=== PATIENT | female | born 1955 | race Caucasian/White ===

== ENCOUNTER 2020-11-03 17:23 | Emergency (ER) | payer BC, SELFPAY ==
[2020-11-03 18:22] VITALS: BP 171/82; PULSE 84; RESP 18; TEMP 37.8; O2SAT 98; BMI 20.8
[2020-11-03 19:04] LABS: Add Manual Diff / Slide Review NO; Basophils Absolute Auto 0 /uL (0-100); Basophils Percent Auto 0.3 % (0-2); Eosinophils Absolute Auto 0 /uL (0-450); Eosinophils Percent Auto 0.1 % (2-4); Hematocrit 36.3 % (36-46); Hemoglobin 12.2 g/dL (12.0-16.0); Lymphocytes Absolute Auto 1000 /uL (1100-4500); Lymphocytes Percent Auto 6.3 % (25-40); Mean Corpuscular HGB Conc 33.5 % (30-36); Mean Corpuscular Hemoglobin 29.4 PG (26-34); Mean Corpuscular Volume 87.8 fL (80-100); Monocytes Absolute Auto 700 /uL (0-900); Monocytes Percent Auto 4.6 % (3-14); Neutrophils Absolute Auto 13600 /uL (1500-7000); Neutrophils Percent Auto 88.7 % (50-75); Platelet Count 411 X10^3/uL (150-400); Red Blood Cell Count 4.14 X10^6/uL (4.0-5.2); Red Cell Distribution Width 13.4 % (11.6-14.8); White Blood Cell Count 15.4 X10^3/uL (4.5-11.0)
[2020-11-03 19:15] LABS: Alanine Aminotransferase 31 IU/L (<35); Albumin 4.2 g/dL (3.5-5.0); Albumin Globulin Ratio 1.3 (1.0-2.8); Alkaline Phosphatase 132 U/L (38-126); Aspartate Aminotransferase 35 IU/L (14-36); Bilirubin Total 0.5 mg/dL (0.2-1.3); Blood Urea Nitrogen 13 mg/dL (7-17); Calcium 9.9 mg/dL (8.4-10.2); Carbon Dioxide 27 mmol/L (22-32); Chloride 103 mmol/L (98-107); Estimated Glomerular Filt Rate > 60.0 mL/min (>60); Globulin 3.3 g/dL (1.7-4.1); Glucose 164 mg/dL (80-110); HEMOLYSIS < 15 (0-50); Lipase 37 U/L (23-300); Potassium 4.6 mmol/L (3.4-5.1); Sodium 137 mmol/L (137-145); Total Protein 7.5 g/dL (6.3-8.2)
--- NOTE | 2020-11-03 20:34 | ED_ITS ---
HPI - General Adult <Wilmer Brandt DO - Last Filed: 11/04/20 22:37> General Chief complaint: Abdominal Pain Stated complaint: Pain Lower Rt Side Time Seen by Provider: 11/03/20 20:29 Source: patient Mode of arrival: Ambulatory Limitations: no limitations History of Present Illness HPI narrative: Patient is a 65-year-old female here for the evaluation of right- sided abdominal discomfort. She states that the current symptoms that she is having she has had for approximately 18 hours. She states the pain is sharp. No urinary symptoms. No bowel changes. No skin rashes. She has had pain similar to this 2 times in the past. The 1st time was several months ago. It felt just like it did today. Lasted a couple days and then completely resolved. The 2nd time was approximately 1 month ago. Again felt exactly the same as it did today and lasted a couple days and then completely resolved. She denies any fevers. Has not tried anything for the symptoms prior to arrival. She does state that the pain radiates from her right back down into her groin. She has never had a kidney stone in the past. Related Data Allergies Allergy/AdvReac Type Severity Reaction Status Date / Time ciprofloxacin Allergy Verified 11/03/20 18:22 Penicillins Allergy Verified 11/03/20 18:22 Sulfa (Sulfonamide Allergy Verified 11/03/20 18:22 Antibiotics) Review of Systems <DO Virgilio Perez Last Filed: 11/04/20 22:37> Constitutional Comments: No fevers Cardiovascular Comments: No chest pain Respiratory Comments: No shortness of breath Gastrointestinal Gastrointestinal: Reports as per HPI Genitourinary Genitourinary: Reports as per HPI Musculoskeletal Comments: Right-sided back pain Integumentary/Breasts Comments: No rashes Neurologic Neurologic: Reports system reviewed and no additional complaints, except as documented Psychiatric Psychiatric: Reports system reviewed and no additional complaints, except as documented Endocrine Endocrine: Reports system reviewed and no additional complaints, except as documented Hematologic/Lymphatic On Anticoagulants: No Allergic/Immunologic Allergic/Immunologic: Reports system reviewed and no additional complaints, except as documented Patient History <DO Virgilio Perez Last Filed: 11/04/20 22:37> Medical History Healthy adult Social History (Reviewed 11/04/20 @ 06:43 by ANAIS Perez Smoking Status: Never smoker Smoking Status: Never smoker Substance Use Type: does not use Exam <DO Virgilio Perez Last Filed: 11/04/20 22:37> Initial Vital Signs Initial Vital Signs: Vital Signs Temperature 100.0 F H 11/03/20 18:22 Pulse Rate 84 11/03/20 18:22 Respiratory Rate 18 11/03/20 18:22 Blood Pressure 171/82 H 11/03/20 18:22 Pulse Oximetry 98 11/03/20 18:22 Const General: cooperative, healthy appearing and comfortable HENNY Head: normal to inspection and normocephalic Eyes General: appearance normal, both eyes and all related structures Resp Effort & Inspection: normal respiratory effort Auscultation: clear to auscultation bilaterally Cardio Rate: regular rate Rhythm: regular rhythm GI Inspection: normal to inspection Palpation: soft and tender General: bladder normal to palpation Bimanual Exam- Vagina & Uterus: bladder normal to palpation Back/Spine/Pelvis Back: CVA tenderness right Skin General: no rashes or lesions noted Neuro General: patient alert, patient awake, patient oriented x3 and moves all extremities Extrem General: normal to inspection and capillary refill normal Psych Appearance: grossly normal and well kempt <Simran Ceja DO - Last Filed: 11/04/20 18:26> Initial Vital Signs Initial Vital Signs: Vital Signs Temperature 100.0 F H 11/03/20 18:22 Pulse Rate 84 11/03/20 18:22 Respiratory Rate 18 11/03/20 18:22 Blood Pressure 171/82 H 11/03/20 18:22 Pulse Oximetry 98 11/03/20 18:22 Scores <Wilmer Brandt DO - Last Filed: 11/04/20 22:37> GCS [place] coma scale eye opening: Spontaneous [place] coma scale verbal response: Orientated [place] coma scale motor response: Obey commands [place] coma scale total score: 15 <Simran Ceja DO - Last Filed: 11/04/20 18:26> GCS [place] coma scale total score: 15 Course <Wilmer Brandt DO - Last Filed: 11/04/20 22:37> Orders Ordered: ED Orders 11/04/20 14:34 Complete Blood Count AUTO DIFF Stat Discontinued Medications Acetaminophen (Acetaminophen 325 Mg Tablet) 975 mg PO NOW ONE Stop: 11/04/20 09:04 Last Admin: 11/04/20 09:19 Dose: 975 mg Documented by: DEREK Hydromorphone HCl (Hydromorphone 0.5 Mg Inj) 0.5 mg IV NOW ONE Stop: 11/04/20 02:45 Last Admin: 11/04/20 02:51 Dose: 0.5 mg Documented by: GIOVANNA Hydromorphone HCl (Hydromorphone 0.5 Mg Inj) 0.5 mg IV NOW ONE Stop: 11/04/20 15:22 Last Admin: 11/04/20 15:24 Dose: 0.5 mg Documented by: JAMEL Ceftriaxone Sodium 1,000 mg/ (Sodium Chloride) 100 mls @ 200 mls/hr IV NOW ONE Stop: 11/03/20 21:53 Last Infusion: 11/03/20 23:06 Dose: 0 mls/hr Documented by: Admin: 11/03/20 22:23 Dose: 200 mls/hr Documented by: GIOVANNA Ceftriaxone Sodium 1,000 mg/ (Sodium Chloride) 100 mls @ 200 mls/hr IV Q12H RAÚL Last Infusion: 11/04/20 10:06 Dose: 0 mls/hr Documented by: Admin: 11/04/20 09:22 Dose: 200 mls/hr Documented by: DEREK Sodium Chloride (Normal Saline 0.9%) 1,000 mls @ 125 mls/hr IV CONT RAÚL Last Infusion: 11/04/20 13:36 Dose: 0 mls/hr Documented by: Infusion: 11/04/20 12:49 Dose: 1,000 mls/hr Documented by: Admin: 11/04/20 12:23 Dose: 125 mls/hr Documented by: JAMEL Sodium Chloride (Normal Saline 0.9%) 1,000 mls @ 1,000 mls/hr IV BOLUS ONE Stop: 11/04/20 14:34 Last Admin: 11/04/20 13:40 Dose: Not Given Documented by: JAMEL Sodium Chloride (Normal Saline 0.9%) 1,837.05 mls @ 612.35 mls/hr 30 ml/kg infuse over 3 hr (1837.05 ml) IV NOW ONE Stop: 11/04/20 16:35 Last Infusion: 11/04/20 14:58 Dose: 0 mls/hr Documented by: Admin: 11/04/20 12:00 Dose: 612.35 mls/hr Documented by: JAMEL Sodium Chloride (Normal Saline 0.9%) 1,000 mls @ 150 mls/hr IV CONT RAÚL Last Admin: 11/04/20 15:24 Dose: 150 mls/hr Documented by: JAMEL Ketorolac Tromethamine (Ketorolac 30 Mg/Ml Vial) 15 mg IV NOW ONE Stop: 11/04/20 09:04 Last Admin: 11/04/20 09:21 Dose: 15 mg Documented by: DEREK Morphine Sulfate (Morphine 4 Mg/Ml Inj) 4 mg IV NOW ONE Stop: 11/03/20 20:35 Last Admin: 11/03/20 20:43 Dose: 4 mg Documented by: VANESSA Morphine Sulfate (Morphine 4 Mg/Ml Inj) 4 mg IV NOW ONE Stop: 11/03/20 22:41 Last Admin: 11/03/20 23:02 Dose: 4 mg Documented by: GIOVANNA Ondansetron HCl (Ondansetron 4 Mg/2 Ml Inj) 4 mg IV NOW ONE Stop: 11/03/20 20:35 Last Admin: 11/03/20 20:43 Dose: 4 mg Documented by: VANESSA Vital Signs Vital signs: Vital Signs - 8 hr 11/04/20 14:40 11/04/20 14:50 11/04/20 15:00 Temperature Pulse Rate 61 62 70 Respiratory Rate 17 20 22 Blood Pressure 102/59 L 103/53 L 106/59 L Pulse Oximetry 95 95 97 11/04/20 15:10 11/04/20 15:15 11/04/20 15:20 Temperature 98.5 F Pulse Rate 67 68 Respiratory Rate 19 17 Blood Pressure 110/58 L 110/56 L Pulse Oximetry 97 96 11/04/20 15:30 11/04/20 15:41 11/04/20 15:50 Temperature Pulse Rate 69 74 69 Respiratory Rate 19 27 H 21 Blood Pressure 108/59 L 134/61 108/56 L Pulse Oximetry 96 97 95 11/04/20 16:00 11/04/20 16:10 11/04/20 16:20 Temperature Pulse Rate 68 67 66 Respiratory Rate 19 18 18 Blood Pressure 118/56 L 111/58 L 103/55 L Pulse Oximetry 97 96 95 11/04/20 16:30 11/04/20 16:40 11/04/20 16:50 Temperature Pulse Rate 64 68 66 Respiratory Rate 24 23 31 H Blood Pressure 116/56 L 109/55 L 106/55 L Pulse Oximetry 95 95 96 11/04/20 17:00 11/04/20 17:10 11/04/20 17:13 Temperature 98.5 F Pulse Rate 67 69 Respiratory Rate 19 20 Blood Pressure 103/53 L 123/58 L Pulse Oximetry 94 99 11/04/20 17:30 11/04/20 18:00 Temperature 99.1 F Pulse Rate 66 79 Respiratory Rate 20 20 Blood Pressure 108/55 L 145/63 H Pulse Oximetry 95 98 <Simran Ceja DO - Last Filed: 11/04/20 18:26> Orders Ordered: ED Orders 11/04/20 14:34 Complete Blood Count AUTO DIFF Stat Discontinued Medications Acetaminophen (Acetaminophen 325 Mg Tablet) 975 mg PO NOW ONE Stop: 11/04/20 09:04 Last Admin: 11/04/20 09:19 Dose: 975 mg Documented by: DEREK Hydromorphone HCl (Hydromorphone 0.5 Mg Inj) 0.5 mg IV NOW ONE Stop: 11/04/20 02:45 Last Admin: 11/04/20 02:51 Dose: 0.5 mg Documented by: GIOVANNA Hydromorphone HCl (Hydromorphone 0.5 Mg Inj) 0.5 mg IV NOW ONE Stop: 11/04/20 15:22 Last Admin: 11/04/20 15:24 Dose: 0.5 mg Documented by: JAMEL Ceftriaxone Sodium 1,000 mg/ (Sodium Chloride) 100 mls @ 200 mls/hr IV NOW ONE Stop: 11/03/20 21:53 Last Infusion: 11/03/20 23:06 Dose: 0 mls/hr Documented by: Admin: 11/03/20 22:23 Dose: 200 mls/hr Documented by: GIOVANNA Ceftriaxone Sodium 1,000 mg/ (Sodium Chloride) 100 mls @ 200 mls/hr IV Q12H RAÚL Last Infusion: 11/04/20 10:06 Dose: 0 mls/hr Documented by: Admin: 11/04/20 09:22 Dose: 200 mls/hr Documented by: DEREK Sodium Chloride (Normal Saline 0.9%) 1,000 mls @ 125 mls/hr IV CONT RAÚL Last Infusion: 11/04/20 13:36 Dose: 0 mls/hr Documented by: Infusion: 11/04/20 12:49 Dose: 1,000 mls/hr Documented by: Admin: 11/04/20 12:23 Dose: 125 mls/hr Documented by: JAMEL Sodium Chloride (Normal Saline 0.9%) 1,000 mls @ 1,000 mls/hr IV BOLUS ONE Stop: 11/04/20 14:34 Last Admin: 11/04/20 13:40 Dose: Not Given Documented by: JAMEL Sodium Chloride (Normal Saline 0.9%) 1,837.05 mls @ 612.35 mls/hr 30 ml/kg infuse over 3 hr (1837.05 ml) IV NOW ONE Stop: 11/04/20 16:35 Last Infusion: 11/04/20 14:58 Dose: 0 mls/hr Documented by: Admin: 11/04/20 12:00 Dose: 612.35 mls/hr Documented by: JAMEL Sodium Chloride (Normal Saline 0.9%) 1,000 mls @ 150 mls/hr IV CONT [facility] Last Admin: 11/04/20 15:24 Dose: 150 mls/hr Documented by: JAMEL Ketorolac Tromethamine (Ketorolac 30 Mg/Ml Vial) 15 mg IV NOW ONE Stop: 11/04/20 09:04 Last Admin: 11/04/20 09:21 Dose: 15 mg Documented by: DEREK Morphine Sulfate (Morphine 4 Mg/Ml Inj) 4 mg IV NOW ONE Stop: 11/03/20 20:35 Last Admin: 11/03/20 20:43 Dose: 4 mg Documented by: VANESSA Morphine Sulfate (Morphine 4 Mg/Ml Inj) 4 mg IV NOW ONE Stop: 11/03/20 22:41 Last Admin: 11/03/20 23:02 Dose: 4 mg Documented by: GIOVANNA Ondansetron HCl (Ondansetron 4 Mg/2 Ml Inj) 4 mg IV NOW ONE Stop: 11/03/20 20:35 Last Admin: 11/03/20 20:43 Dose: 4 mg Documented by: VANESSA Vital Signs Vital signs: Vital Signs - 8 hr 11/04/20 14:40 11/04/20 14:50 11/04/20 15:00 Temperature Pulse Rate 61 62 70 Respiratory Rate 17 20 22 Blood Pressure 102/59 L 103/53 L 106/59 L Pulse Oximetry 95 95 97 11/04/20 15:10 11/04/20 15:15 11/04/20 15:20 Temperature 98.5 F Pulse Rate 67 68 Respiratory Rate 19 17 Blood Pressure 110/58 L 110/56 L Pulse Oximetry 97 96 11/04/20 15:30 11/04/20 15:41 11/04/20 15:50 Temperature Pulse Rate 69 74 69 Respiratory Rate 19 27 H 21 Blood Pressure 108/59 L 134/61 108/56 L Pulse Oximetry 96 97 95 11/04/20 16:00 11/04/20 16:10 11/04/20 16:20 Temperature Pulse Rate 68 67 66 Respiratory Rate 19 18 18 Blood Pressure 118/56 L 111/58 L 103/55 L Pulse Oximetry 97 96 95 11/04/20 16:30 11/04/20 16:40 11/04/20 16:50 Temperature Pulse Rate 64 68 66 Respiratory Rate 24 23 31 H Blood Pressure 116/56 L 109/55 L 106/55 L Pulse Oximetry 95 95 96 11/04/20 17:00 11/04/20 17:10 11/04/20 17:13 Temperature 98.5 F Pulse Rate 67 69 Respiratory Rate 19 20 Blood Pressure 103/53 L 123/58 L Pulse Oximetry 94 99 11/04/20 17:30 11/04/20 18:00 Temperature 99.1 F Pulse Rate 66 79 Respiratory Rate 20 20 Blood Pressure 108/55 L 145/63 H Pulse Oximetry 95 98 Medical Decision Making <Wilmer Brandt DO - Last Filed: 11/04/20 22:37> Lab Data Lab results reviewed: Yes I reviewed the patient's lab results. Result diagrams: 11/04/20 14:34 11/03/20 18:52 Labs: Lab Results 11/03/20 11/03/20 11/03/20 Range/Units 18:52 18:52 18:52 WBC 15.4 H (4.5-11.0) X10^3/uL RBC 4.14 (4.0-5.2) X10^6/uL Hgb 12.2 (12.0-16.0) g/dL Hct 36.3 (36-46) % MCV 87.8 (80-100) fL MCH 29.4 (26-34) PG MCHC 33.5 (30-36) % RDW 13.4 (11.6-14.8) % Plt Count 411 H (150-400) X10^3/uL Neut % (Auto) 88.7 H (50-75) % Lymph % (Auto) 6.3 L (25-40) % [place] % (Auto) 4.6 (3-14) % Eos % (Auto) 0.1 L (2-4) % Baso % (Auto) 0.3 (0-2) % Neut # (Auto) 88325 H (3794-3589) /uL Lymph # (Auto) 1000 L (3105-2698) /uL [place]man # (Auto) 700 (0-900) /uL Eos # (Auto) 0 (0-450) /uL Baso # (Auto) 0 (0-100) /uL Sodium 137 (137-145) mmol/L Potassium 4.6 (3.4-5.1) mmol/L Chloride 103 (98-107) mmol/L Carbon Dioxide 27 (22-32) mmol/L BUN 13 (7-17) mg/dL Creatinine 0.81 (0.52-1.04) mg/dL Estimated GFR > 60.0 (>60) mL/min BUN/Creatinine Ratio 16.0 (6-22) Glucose 164 H (80-110) mg/dL Lactate 1.0 (0.7-2.1) mmol/L Calcium 9.9 (8.4-10.2) mg/dL Total Bilirubin 0.5 (0.2-1.3) mg/dL AST 35 (14-36) IU/L ALT 31 (<35) IU/L Alkaline Phosphatase 132 H (38-126) U/L Total Protein 7.5 (6.3-8.2) g/dL Albumin 4.2 (3.5-5.0) g/dL Globulin 3.3 (1.7-4.1) g/dL Albumin/Globulin Ratio 1.3 (1.0-2.8) Lipase 37 (23-300) U/L Procalcitonin (<0.5) ng/mL Urine RBC (0-5/HPF) Urine WBC (0-5/HPF) Ur Squamous Epith Cells (0-5/HPF) Urine Bacteria (None) Ur Culture Indicated? A. baumannii (PCR) (Not Detect) Kiarra albicans (PCR) (Not Detect) C. glabrata (PCR) (Not Detect) C. krusei (PCR) (Not Detect) C. parapsilosis (PCR) (Not Detect) C. tropicalis (PCR) (Not Detect) SARS-CoV-2 (PCR) (Negative) Enterobacteriac sp PCR (Not Detect) E. cloacae complex PCR (Not Detect) Enterococcus sp PCR (Not Detect) E. coli (PCR) (Not Detect) H. influenzae (PCR) (Not Detect) Klebsiella oxytoca PCR (Not Detect) Klebsiella pneumoniae (Not Detect) List. monocytogenes PCR (Not Detect) N. meningitidis (PCR) (Not Detect) Proteus species (PCR) (Not Detect) Serratia marcescens PCR (Not Detect) Staphylococcus sp PCR (Not Detect) Staph aureus (PCR) (Not Detect) mecA-Methicil Res Gene Streptococcus sp PCR (Not Detect) Group A Strep (PCR) (Not Detect) Strep agalactiae (PCR) (Not Detect) Strep pneumoniae (PCR) (Not Detect) P. aeruginosa (PCR) (Not Detect) Kalia/B-Vanco Res Genes KPC-Carbap Res Gene PCR (Not Detect) 11/03/20 11/03/20 11/03/20 Range/Units 18:52 22:09 22:33 WBC (4.5-11.0) X10^3/uL RBC (4.0-5.2) X10^6/uL Hgb (12.0-16.0) g/dL Hct (36-46) % MCV (80-100) fL MCH (26-34) PG MCHC (30-36) % RDW (11.6-14.8) % Plt Count (150-400) X10^3/uL Neut % (Auto) (50-75) % Lymph % (Auto) (25-40) % Hickman % (Auto) (3-14) % Eos % (Auto) (2-4) % Baso % (Auto) (0-2) % Neut # (Auto) (8074-2204) /uL Lymph # (Auto) (3494-1167) /uL Hickman # (Auto) (0-900) /uL Eos # (Auto) (0-450) /uL Baso # (Auto) (0-100) /uL Sodium (137-145) mmol/L Potassium (3.4-5.1) mmol/L Chloride (98-107) mmol/L Carbon Dioxide (22-32) mmol/L BUN (7-17) mg/dL Creatinine (0.52-1.04) mg/dL Estimated GFR (>60) mL/min BUN/Creatinine Ratio (6-22) Glucose (80-110) mg/dL Lactate (0.7-2.1) mmol/L Calcium (8.4-10.2) mg/dL Total Bilirubin (0.2-1.3) mg/dL AST (14-36) IU/L ALT (<35) IU/L Alkaline Phosphatase (38-126) U/L Total Protein (6.3-8.2) g/dL Albumin (3.5-5.0) g/dL Globulin (1.7-4.1) g/dL Albumin/Globulin Ratio (1.0-2.8) Lipase (23-300) U/L Procalcitonin 0.14 (<0.5) ng/mL Urine RBC 1-5/hpf (0-5/HPF) Urine WBC 30-100/hpf H (0-5/HPF) Ur Squamous Epith Cells 1-5 /hpf (0-5/HPF) Urine Bacteria Many (>30) H (None) Ur Culture Indicated? Culture not indicate A. baumannii (PCR) Not detected (Not Detect) Kiarra albicans (PCR) Not detected (Not Detect) C. glabrata (PCR) Not detected (Not Detect) C. krusei (PCR) Not detected (Not Detect) C. parapsilosis (PCR) Not detected (Not Detect) C. tropicalis (PCR) Not detected (Not Detect) SARS-CoV-2 (PCR) (Negative) Enterobacteriac sp PCR Detected H (Not Detect) E. cloacae complex PCR Not detected (Not Detect) Enterococcus sp PCR Not detected (Not Detect) E. coli (PCR) Detected H (Not Detect) H. influenzae (PCR) Not detected (Not Detect) Klebsiella oxytoca PCR Not detected (Not Detect) Klebsiella pneumoniae Not detected (Not Detect) List. monocytogenes PCR Not detected (Not Detect) N. meningitidis (PCR) Not detected (Not Detect) Proteus species (PCR) Not detected (Not Detect) Serratia marcescens PCR Not detected (Not Detect) Staphylococcus sp PCR Not detected (Not Detect) Staph aureus (PCR) Not detected (Not Detect) mecA-Methicil Res Gene Not Reportable Streptococcus sp PCR Not detected (Not Detect) Group A Strep (PCR) Not detected (Not Detect) Strep agalactiae (PCR) Not detected (Not Detect) Strep pneumoniae (PCR) Not detected (Not Detect) P. aeruginosa (PCR) Not detected (Not Detect) Kalia/B-Vanco Res Genes Not Reportable KPC-Carbap Res Gene PCR Not detected (Not Detect) 11/03/20 11/04/20 11/04/20 Range/Units 23:05 13:20 14:34 WBC 18.3 H (4.5-11.0) X10^3/uL RBC 3.15 L (4.0-5.2) X10^6/uL Hgb 9.3 L (12.0-16.0) g/dL Hct 27.9 L (36-46) % MCV 88.6 (80-100) fL MCH 29.4 (26-34) PG MCHC 33.2 (30-36) % RDW 13.7 (11.6-14.8) % Plt Count 262 (150-400) X10^3/uL Neut % (Auto) 82.6 H (50-75) % Lymph % (Auto) 11.4 L (25-40) % Hickman % (Auto) 5.4 (3-14) % Eos % (Auto) 0.3 L (2-4) % Baso % (Auto) 0.3 (0-2) % Neut # (Auto) 68034 H (5813-7600) /uL Lymph # (Auto) 2100 (5234-7961) /uL Hickman # (Auto) 1000 H (0-900) /uL Eos # (Auto) 100 (0-450) /uL Baso # (Auto) 100 (0-100) /uL Sodium (137-145) mmol/L Potassium (3.4-5.1) mmol/L Chloride (98-107) mmol/L Carbon Dioxide (22-32) mmol/L BUN (7-17) mg/dL Creatinine (0.52-1.04) mg/dL Estimated GFR (>60) mL/min BUN/Creatinine Ratio (6-22) Glucose (80-110) mg/dL Lactate 1.2 (0.7-2.1) mmol/L Calcium (8.4-10.2) mg/dL Total Bilirubin (0.2-1.3) mg/dL AST (14-36) IU/L ALT (<35) IU/L Alkaline Phosphatase (38-126) U/L Total Protein (6.3-8.2) g/dL Albumin (3.5-5.0) g/dL Globulin (1.7-4.1) g/dL Albumin/Globulin Ratio (1.0-2.8) Lipase (23-300) U/L Procalcitonin (<0.5) ng/mL Urine RBC (0-5/HPF) Urine WBC (0-5/HPF) Ur Squamous Epith Cells (0-5/HPF) Urine Bacteria (None) Ur Culture Indicated? A. baumannii (PCR) (Not Detect) Kiarra albicans (PCR) (Not Detect) C. glabrata (PCR) (Not Detect) C. krusei (PCR) (Not Detect) C. parapsilosis (PCR) (Not Detect) C. tropicalis (PCR) (Not Detect) SARS-CoV-2 (PCR) Negative (Negative) Enterobacteriac sp PCR (Not Detect) E. cloacae complex PCR (Not Detect) Enterococcus sp PCR (Not Detect) E. coli (PCR) (Not Detect) H. influenzae (PCR) (Not Detect) Klebsiella oxytoca PCR (Not Detect) Klebsiella pneumoniae (Not Detect) List. monocytogenes PCR (Not Detect) N. meningitidis (PCR) (Not Detect) Proteus species (PCR) (Not Detect) Serratia marcescens PCR (Not Detect) Staphylococcus sp PCR (Not Detect) Staph aureus (PCR) (Not Detect) mecA-Methicil Res Gene Streptococcus sp PCR (Not Detect) Group A Strep (PCR) (Not Detect) Strep agalactiae (PCR) (Not Detect) Strep pneumoniae (PCR) (Not Detect) P. aeruginosa (PCR) (Not Detect) Kalia/B-Vanco Res Genes KPC-Carbap Res Gene PCR (Not Detect) Urine Dip Bedside Urine Glucose Negative Bedside Urine Bilirubin - Negative Bedside Urine Ketone +/- 5 Urine Specific [place] 1.015 Bedside Urine Occult Blood + Bedside Urine pH 5.5 Bedside Urine Protein - Negative Bedside Urine Urobilinogen - Negative Bedside Urine Nitrite - Negative Bedside Urine Leukocytes + 70 Esterase Point of care testing: Urine Dip Bedside Urine Glucose Negative Bedside Urine Bilirubin - Negative Bedside Urine Ketone +/- 5 Urine Specific [place] 1.015 Bedside Urine Occult Blood + Bedside Urine pH 5.5 Bedside Urine Protein - Negative Bedside Urine Urobilinogen - Negative Bedside Urine Nitrite - Negative Bedside Urine Leukocytes + [address] abdomen pelvis with contrast: Radiologist's Impression: [address] [id number] Scan ReportSigned Patient: Frances Sanchez [facility]#: [id number]: 8Acct:[id number]/Sex: 65 / FDate of Service: 11/03/20Loc: EDAccession Number: [id number] Procedure: CT abdomen pelvis w con Ordering Provider: Wilmer Brandt D.O. PROCEDURE: CT ABDOMEN PELVIS W CON INDICATIONS: History of gastric bypass, right lower quadrant abdominal pa TECHNIQUE: After the administration of oral and IV contrast, axial sections were acquired from the lung bases to the pubic symphysis. Coronal and sagittal reformats were performe d. For radiation dose reduction, the following was used: automated exposure control, adjustment of mA and/or kV according to patient size. COMPARISON: None. FINDINGS: Image quality: Excellent. Lung bases: Unremarkable. Heart: No significant findings. Bilateral breast implants. Small hiatal hernia. Gastric bypass. ABDOMEN: Liver: Unremarkable. Gallbladder: Unremarkable. Biliary ducts: Unremarkable. Pancreas: Unremarkable. Spleen: Unremarkable. Adrenal Glands: Unremarkable. Kidneys and Ureters: Severe right hydronephrosis. There is gas within the right renal collecting system. There is a nonobstructing calculus in the right renal pelvis measuring 0.9 cm, (/26). The right kidney demonstrates asymmetric decreased enhancement compared to the left. There is right perinephric stranding. No significant right hydroureter. No left kidney hydronephrosis. Stomach and Bowel: Stomach, small bowel loops, and colon are unremarkable. Diverticulosis. Mino-en-Y gastric bypass. Peritoneum: No abnormal intraperitoneal fluid. No free air. Ventral Wall: No hernia. Abdominal Nodes: No retroperitoneal or mesenteric adenopathy by size criteria. Vessels: Aorta and inferior vena cava are normal in size. PELVIS: Pelvic Organs: Tubal ligation clips. Anteverted uterus. Bladder: No bladder stone. Pelvic Nodes: No enlarged lymph nodes. Miscellaneous: No inguinal hernias are seen. Bones: Unremarkable. IMPRESSION: 1. Right kidney emphysematous pyelitis (-gas contain within the right renal collecting system rather than the much more severe emphysematous pyelonephritis- gas within the renal parenchyma). Severe right hydronephrosis. Asymmetric decreased enhancement within the right kidney. 2. Kidney stone in the right renal pelvis measuring 0.9 cm. It is uncertain if this stone is causing intermittent obstruction. 3. No significant right hydroureter. There is increased density in the proximal right ureter. 4. Post Mino-en-Y gastric bypass. No small bowel obstruction. Recommend urology consultation. Comment: Preliminary findings were discussed with Wilmer Brandt at the time of dictation. Dictated by: Elbert Albrecht M.D. on 11/03/2020 at 21:23 Approved by: Elbert Albrecht M.D. on 11/03/2020 at 21:41 CT abdomen pelvis without contrast: Radiologist's Impression: [address] [id number] Scan ReportSigned Patient: Frances Sanchez [facility]#: [id number]: 8Acct:[id number]/Sex: 65 / FDate of Service: 11/03/20Loc: EDAccession Number: [id number] Procedure: CT kidney ureter bladder (KUB) Ordering Provider: Wilmer Brandt D.O. PROCEDURE: CT KIDNEY URETER BLADDER (KUB) INDICATIONS: Right kidney infection. Approximately 1.5 hours post prior contrast administration. TECHNIQUE: Axial sections were acquired from the lung bases to the pubic symphysis. Coronal and sagittal reformats were performed. For radiation dose reduction, the following was used: automated exposure control, adjustment of mA and/or kV according to patient size. COMPARISON: [facility], CT, CT ABDOMEN PELVIS W CON, 11/03/2020, 20:55. FINDINGS: Image quality: Excellent. Lung bases: Unremarkable. Heart: No significant findings. URINARY: Right Kidney: Persistent right kidney nephrogram. Right kidney striated nephrogram. Again seen is air within the dilated right kidney. No contrast excretion is seen in the right kidney. Calculus in the right renal pelvis. Perinephric stranding. Right Ureter: No hydroureter appreciated. Right ureter does not opacify with contrast. Left Kidney: No striated nephrogram or persistent nephrogram. No hydronep hrosis. Small peripelvic cysts. Left Ureter: There is contrast excreted in the left ureter. No filling defect within the visualized portions of the opacified left upper ureter. Bladder: Excreted contrast in the urinary bladder. No filling defects seen. ABDOMEN: Liver: Unremarkable. Gallbladder: Unremarkable. Biliary ducts: Unremarkable. Pancreas: Unremarkable. Spleen: Unremarkable. Adrenal Glands: Unremarkable. Stomach and Bowel: Small hiatal hernia. Mino-en-Y gastric bypass. No small bowel obstruction. Appendix is not identified. Peritoneum: No abnormal intraperitoneal fluid. No free air. Ventral Wall: No hernia. Abdominal Nodes: No enlarged retroperitoneal or mesenteric lymph nodes. Vessels: Aorta and inferior vena cava are normal in size. PELVIS: Pelvic Organs: Unremarkable. Pelvic Nodes: Unremarkable. Miscellaneous: No inguinal hernias are seen. Bones: Unremarkable. IMPRESSION: 1. Right kidney persistent nephrogram and striated nephrogram. Findings most compatible with pyelonephritis. 2. Right kidney emphysematous pyelitis. 3. No contrast excreted into the right renal collecting system is demonstrated. 4. No filling defect within the opacified upper left ureter. No left hydronephrosis. Comment: Findings were discussed with Wilmer Brandt at the time of dictation. Dictated by: Elbert Albrecht M.D. on 11/03/2020 at 22:01 Approved by: Elbert Albrecht M.D. on 11/03/2020 at 22:11 [facility] Narrative Medical decision making narrative: Patient does have leukocytosis in urinalysis is concerning for urinary tract infection. She has never been hypotensive. Is nontoxic appearing. Was given Rocephin. Blood cultures and urine cultures have been obtained. Her kidney function is unremarkable. The initial CT scan of her abdomen pelvis was performed with IV contrast. I received a call from Radiology stating that her scan was consistent with Emphysematous pyelitis. He stated that there was a stone on the right but the ureters were not distended. There did not seem to be any definitive blockage of the right ureter. He recommended a CT scan without contrast to follow-up which was performed. This showed that the contrast has not fluid from the kidney on the right which is concerning for an obstruction. There is also findings on that scan of pyelonephritis but not Emphysematous pyelonephritis. I did discuss the case with Dr. Ca with Urology who stated that the patient should be transfer to his facility where there is a urologic consultation as she may need a nephrostomy tube if her symptoms worsen. He did not feel that she needs this emergently and I agree with this given her presentation. Discussed the case with the transfer center at the [facility] who stated that they had no bed availability. Turned over to day provider to continue to observe and disposition. <Simran Ceja, DO - Last Filed: 11/04/20 18:26> Lab Data Labs: Lab Results 11/03/20 11/03/20 11/03/20 Range/Units 18:52 18:52 18:52 WBC 15.4 H (4.5-11.0) X10^3/uL RBC 4.14 (4.0-5.2) X10^6/uL Hgb 12.2 (12.0-16.0) g/dL Hct 36.3 (36-46) % MCV 87.8 (80-100) fL MCH 29.4 (26-34) PG MCHC 33.5 (30-36) % RDW 13.4 (11.6-14.8) % Plt Count 411 H (150-400) X10^3/uL Neut % (Auto) 88.7 H (50-75) % Lymph % (Auto) 6.3 L (25-40) % Hickman % (Auto) 4.6 (3-14) % Eos % (Auto) 0.1 L (2-4) % Baso % (Auto) 0.3 (0-2) % Neut # (Auto) 89288 H (8675-5566) /uL Lymph # (Auto) 1000 L (3839-7458) /uL Hickman # (Auto) 700 (0-900) /uL Eos # (Auto) 0 (0-450) /uL Baso # (Auto) 0 (0-100) /uL Sodium 137 (137-145) mmol/L Potassium 4.6 (3.4-5.1) mmol/L Chloride 103 (98-107) mmol/L Carbon Dioxide 27 (22-32) mmol/L BUN 13 (7-17) mg/dL Creatinine 0.81 (0.52-1.04) mg/dL Estimated GFR > 60.0 (>60) mL/min BUN/Creatinine Ratio 16.0 (6-22) Glucose 164 H (80-110) mg/dL Lactate 1.0 (0.7-2.1) mmol/L Calcium 9.9 (8.4-10.2) mg/dL Total Bilirubin 0.5 (0.2-1.3) mg/dL AST 35 (14-36) IU/L ALT 31 (<35) IU/L Alkaline Phosphatase 132 H (38-126) U/L Total Protein 7.5 (6.3-8.2) g/dL Albumin 4.2 (3.5-5.0) g/dL Globulin 3.3 (1.7-4.1) g/dL Albumin/Globulin Ratio 1.3 (1.0-2.8) Lipase 37 (23-300) U/L Procalcitonin (<0.5) ng/mL Urine RBC (0-5/HPF) Urine WBC (0-5/HPF) Ur Squamous Epith Cells (0-5/HPF) Urine Bacteria (None) Ur Culture Indicated? A. baumannii (PCR) (Not Detect) Kiarra albicans (PCR) (Not Detect) C. glabrata (PCR) (Not Detect) C. krusei (PCR) (Not Detect) C. parapsilosis (PCR) (Not Detect) C. tropicalis (PCR) (Not Detect) SARS-CoV-2 (PCR) (Negative) Enterobacteriac sp PCR (Not Detect) E. cloacae complex PCR (Not Detect) Enterococcus sp PCR (Not Detect) E. coli (PCR) (Not Detect) H. influenzae (PCR) (Not Detect) Klebsiella oxytoca PCR (Not Detect) Klebsiella pneumoniae (Not Detect) List. monocytogenes PCR (Not Detect) N. meningitidis (PCR) (Not Detect) Proteus species (PCR) (Not Detect) Serratia marcescens PCR (Not Detect) Staphylococcus sp PCR (Not Detect) Staph aureus (PCR) (Not Detect) mecA-Methicil Res Gene Streptococcus sp PCR (Not Detect) Group A Strep (PCR) (Not Detect) Strep agalactiae (PCR) (Not Detect) Strep pneumoniae (PCR) (Not Detect) P. aeruginosa (PCR) (Not Detect) Kalia/B-Vanco Res Genes KPC-Carbap Res Gene PCR (Not Detect) 11/03/20 11/03/20 11/03/20 Range/Units 18:52 22:09 22:33 WBC (4.5-11.0) X10^3/uL RBC (4.0-5.2) X10^6/uL Hgb (12.0-16.0) g/dL Hct (36-46) % MCV (80-100) fL MCH (26-34) PG MCHC (30-36) % RDW (11.6-14.8) % Plt Count (150-400) X10^3/uL Neut % (Auto) (50-75) % Lymph % (Auto) (25-40) % Hickman % (Auto) (3-14) % Eos % (Auto) (2-4) % Baso % (Auto) (0-2) % Neut # (Auto) (8046-5883) /uL Lymph # (Auto) (4077-4750) /uL Hickman # (Auto) (0-900) /uL Eos # (Auto) (0-450) /uL Baso # (Auto) (0-100) /uL Sodium (137-145) mmol/L Potassium (3.4-5.1) mmol/L Chloride (98-107) mmol/L Carbon Dioxide (22-32) mmol/L BUN (7-17) mg/dL Creatinine (0.52-1.04) mg/dL Estimated GFR (>60) mL/min BUN/Creatinine Ratio (6-22) Glucose (80-110) mg/dL Lactate (0.7-2.1) mmol/L Calcium (8.4-10.2) mg/dL Total Bilirubin (0.2-1.3) mg/dL AST (14-36) IU/L ALT (<35) IU/L Alkaline Phosphatase (38-126) U/L Total Protein (6.3-8.2) g/dL Albumin (3.5-5.0) g/dL Globulin (1.7-4.1) g/dL Albumin/Globulin Ratio (1.0-2.8) Lipase (23-300) U/L Procalcitonin 0.14 (<0.5) ng/mL Urine RBC 1-5/hpf (0-5/HPF) Urine WBC 30-100/hpf H (0-5/HPF) Ur Squamous Epith Cells 1-5 /hpf (0-5/HPF) Urine Bacteria Many (>30) H (None) Ur Culture Indicated? Culture not indicate A. baumannii (PCR) Not detected (Not Detect) Kiarra albicans (PCR) Not detected (Not Detect) C. glabrata (PCR) Not detected (Not Detect) C. krusei (PCR) Not detected (Not Detect) C. parapsilosis (PCR) Not detected (Not Detect) C. tropicalis (PCR) Not detected (Not Detect) SARS-CoV-2 (PCR) (Negative) Enterobacteriac sp PCR Detected H (Not Detect) E. cloacae complex PCR Not detected (Not Detect) Enterococcus sp PCR Not detected (Not Detect) E. coli (PCR) Detected H (Not Detect) H. influenzae (PCR) Not detected (Not Detect) Klebsiella oxytoca PCR Not detected (Not Detect) Klebsiella pneumoniae Not detected (Not Detect) List. monocytogenes PCR Not detected (Not Detect) N. meningitidis (PCR) Not detected (Not Detect) Proteus species (PCR) Not detected (Not Detect) Serratia marcescens PCR Not detected (Not Detect) Staphylococcus sp PCR Not detected (Not Detect) Staph aureus (PCR) Not detected (Not Detect) mecA-Methicil Res Gene Not Reportable Streptococcus sp PCR Not detected (Not Detect) Group A Strep (PCR) Not detected (Not Detect) Strep agalactiae (PCR) Not detected (Not Detect) Strep pneumoniae (PCR) Not detected (Not Detect) P. aeruginosa (PCR) Not detected (Not Detect) Kalia/B-Vanco Res Genes Not Reportable KPC-Carbap Res Gene PCR Not detected (Not Detect) 11/03/20 11/04/20 11/04/20 Range/Units 23:05 13:20 14:34 WBC 18.3 H (4.5-11.0) X10^3/uL RBC 3.15 L (4.0-5.2) X10^6/uL Hgb 9.3 L (12.0-16.0) g/dL Hct 27.9 L (36-46) % MCV 88.6 (80-100) fL MCH 29.4 (26-34) PG MCHC 33.2 (30-36) % RDW 13.7 (11.6-14.8) % Plt Count 262 (150-400) X10^3/uL Neut % (Auto) 82.6 H (50-75) % Lymph % (Auto) 11.4 L (25-40) % Hickman % (Auto) 5.4 (3-14) % Eos % (Auto) 0.3 L (2-4) % Baso % (Auto) 0.3 (0-2) % Neut # (Auto) 52578 H (6548-4705) /uL Lymph # (Auto) 2100 (1919-4823) /uL Hickman # (Auto) 1000 H (0-900) /uL Eos # (Auto) 100 (0-450) /uL Baso # (Auto) 100 (0-100) /uL Sodium (137-145) mmol/L Potassium (3.4-5.1) mmol/L Chloride (98-107) mmol/L Carbon Dioxide (22-32) mmol/L BUN (7-17) mg/dL Creatinine (0.52-1.04) mg/dL Estimated GFR (>60) mL/min BUN/Creatinine Ratio (6-22) Glucose (80-110) mg/dL Lactate 1.2 (0.7-2.1) mmol/L Calcium (8.4-10.2) mg/dL Total Bilirubin (0.2-1.3) mg/dL AST (14-36) IU/L ALT (<35) IU/L Alkaline Phosphatase (38-126) U/L Total Protein (6.3-8.2) g/dL Albumin (3.5-5.0) g/dL Globulin (1.7-4.1) g/dL Albumin/Globulin Ratio (1.0-2.8) Lipase (23-300) U/L Procalcitonin (<0.5) ng/mL Urine RBC (0-5/HPF) Urine WBC (0-5/HPF) Ur Squamous Epith Cells (0-5/HPF) Urine Bacteria (None) Ur Culture Indicated? A. baumannii (PCR) (Not Detect) Kiarra albicans (PCR) (Not Detect) C. glabrata (PCR) (Not Detect) C. krusei (PCR) (Not Detect) C. parapsilosis (PCR) (Not Detect) C. tropicalis (PCR) (Not Detect) SARS-CoV-2 (PCR) Negative (Negative) Enterobacteriac sp PCR (Not Detect) E. cloacae complex PCR (Not Detect) Enterococcus sp PCR (Not Detect) E. coli (PCR) (Not Detect) H. influenzae (PCR) (Not Detect) Klebsiella oxytoca PCR (Not Detect) Klebsiella pneumoniae (Not Detect) List. monocytogenes PCR (Not Detect) N. meningitidis (PCR) (Not Detect) Proteus species (PCR) (Not Detect) Serratia marcescens PCR (Not Detect) Staphylococcus sp PCR (Not Detect) Staph aureus (PCR) (Not Detect) mecA-Methicil Res Gene Streptococcus sp PCR (Not Detect) Group A Strep (PCR) (Not Detect) Strep agalactiae (PCR) (Not Detect) Strep pneumoniae (PCR) (Not Detect) P. aeruginosa (PCR) (Not Detect) Kalia/B-Vanco Res Genes KPC-Carbap Res Gene PCR (Not Detect) Urine Dip Bedside Urine Glucose Negative Bedside Urine Bilirubin - Negative Bedside Urine Ketone +/- 5 Urine Specific [place] 1.015 Bedside Urine Occult Blood + Bedside Urine pH 5.5 Bedside Urine Protein - Negative Bedside Urine Urobilinogen - Negative Bedside Urine Nitrite - Negative Bedside Urine Leukocytes + 70 Esterase Point of care testing: Urine Dip Bedside Urine Glucose Negative Bedside Urine Bilirubin - Negative Bedside Urine Ketone +/- 5 Urine Specific [place] 1.015 Bedside Urine Occult Blood + Bedside Urine pH 5.5 Bedside Urine Protein - Negative Bedside Urine Urobilinogen - Negative Bedside Urine Nitrite - Negative Bedside Urine Leukocytes + 70 Esterase [facility] Narrative Medical decision making narrative: Patient does have leukocytosis in urinalysis is concerning for urinary tract infection. She has never been hypotensive. Is nontoxic appearing. Was given Rocephin. Blood cultures and urine cultures have been obtained. Her kidney function is unremarkable. The initial CT scan of her abdomen pelvis was performed with IV contrast. I received a call from Radiology stating that her scan was consistent with Emphysematous pyelitis. He stated that there was a stone on the right but the ureters were not distended. There did not seem to be any definitive blockage of the right ureter. He recommended a CT scan without contrast to follow-up which was performed. This showed that the contrast has not fluid from the kidney on the right which is concerning for an obstruction. There is also findings on that scan of pyelonephritis but not Emphysematous pyelonephritis. I did discuss the case with Dr. Ca with Urology who stated that the patient should be transfer to his facility where there is a urologic consultation as she may need a nephrostomy tube if her symptoms worsen. He did not feel that she needs this emergently and I agree with this given her presentation. Discussed the case with the transfer center at the [facility] who stated that they had no bed availability. Turned over to day provider to continue to observe and disposition. 730am ASHWINI Patient remains stable. Current sleeping. Received 1 dose of Rocephin last night at 10pm 850am Dr. echevarria urology call to check on patient realized patient was not transferred last evening. There is current bed shortage. Still waiting on [facility] tab beds open up. [facility]. [facility] in [place] might have a bed later today. 12:45 Patient blood pressure slowly started decreasing is into the 90s and remained in the 90s. She sitting up in chest on both sides she is not tachycardic she has no complaints. His sepsis fluid has been started and, repeat lactate is pending 1420 Dr. Ca updated on patient's status. Patient's blood pressure has returned to normal 107/54 with sepsis fluid bolus. Lactate is 1.2 Multiple phone calls to other facilities have been august 15:30 Dr. Kowalski, hospitalist at [facility] has been obtained patient's symptoms test results request we talked to Urology for acceptance 1627 urology at [facility] has been updated on patient's symptoms test results agrees that patient needs to come for intervention. Fortunately they made room at [facility]. Since IV fluid bolus patient blood pressure has been stable. She has increasing leukocytosis lactic acid continues to be normal. She has never been tachyca rdic. She has intermittent low-grade fevers. She clinically appears well <Simran Ceja, DO - Last Filed: 11/04/20 18:26> Critical Care Time Critical Care Time: Yes Total Critical Care Time: 60 Attestation: The high probability of a clinically significant, sudden or life threatening deterioration of the [cardiovascular] system(s) required my full and direct attention, intervention and personal management. The aggregate critical care time was 60 minutes. This time is in addition to time spent performing reported procedures but includes the following: [x] Data Review and interpretation [x] Patient assessment and monitoring of vital signs [x] Documentation [x] Medication orders and management Discharge Plan Departure Patient Disposition: [facility] Clinical Impression: Emphysematous pyelitis, Pyelonephritis Referrals: Simi Manzanares PA-C [Primary Care Provider] -
[2020-11-03] MEDS: ONDANSETRON 4 MG/2 ML INJ IV (20:43)
[2020-11-03] MEDS: MORPHINE 4 MG/ML INJ IV ×2 (20:43→23:02)
--- NOTE | 2020-11-03 21:45 | DI.CT.S_ITS ---
PROCEDURE: CT KIDNEY URETER BLADDER (KUB) INDICATIONS: Right kidney infection. Approximately 1.5 hours post prior contrast administration. TECHNIQUE: Axial sections were acquired from the lung bases to the pubic symphysis. Coronal and sagittal reformats were performed. For radiation dose reduction, the following was used: automated exposure control, adjustment of mA and/or kV according to patient size. COMPARISON: [facility], CT, CT ABDOMEN PELVIS W CON, 11/03/2020, 20:55. FINDINGS: Image quality: Excellent. Lung bases: Unremarkable. Heart: No significant findings. URINARY: Right Kidney: Persistent right kidney nephrogram. Right kidney striated nephrogram. Again seen is air within the dilated right kidney. No contrast excretion is seen in the right kidney. Calculus in the right renal pelvis. Perinephric stranding. Right Ureter: No hydroureter appreciated. Right ureter does not opacify with contrast. Left Kidney: No striated nephrogram or persistent nephrogram. No hydronephrosis. Small peripelvic cysts. Left Ureter: There is contrast excreted in the left ureter. No filling defect within the visualized portions of the opacified left upper ureter. Bladder: Excreted contrast in the urinary bladder. No filling defects seen. ABDOMEN: Liver: Unremarkable. Gallbladder: Unremarkable. Biliary ducts: Unremarkable. Pancreas: Unremarkable. Spleen: Unremarkable. Adrenal Glands: Unremarkable. Stomach and Bowel: Small hiatal hernia. Mino-en-Y gastric bypass. No small bowel obstruction. Appendix is not identified. Peritoneum: No abnormal intraperitoneal fluid. No free air. Ventral Wall: No hernia. Abdominal Nodes: No enlarged retroperitoneal or mesenteric lymph nodes. Vessels: Aorta and inferior vena cava are normal in size. PELVIS: Pelvic Organs: Unremarkable. Pelvic Nodes: Unremarkable. Miscellaneous: No inguinal hernias are seen. Bones: Unremarkable. IMPRESSION: 1. Right kidney persistent nephrogram and striated nephrogram. Findings most compatible with pyelonephritis. 2. Right kidney emphysematous pyelitis. 3. No contrast excreted into the right renal collecting system is demonstrated. 4. No filling defect within the opacified upper left ureter. No left hydronephrosis. Comment: Findings were discussed with Wilmer Brandt at the time of dictation. Dictated by: Elbert Albrecht M.D. on 11/03/2020 at 22:01 Approved by: Elbert Albrecht M.D. on 11/03/2020 at 22:11
[2020-11-03] MEDS: cefTRIAXone 1,000 MG in SODIUM CHLORIDE 0.9% 100 ML 200 ML IV (22:23)
[2020-11-03 22:24] LABS: Procalcitonin 0.14 ng/mL (<0.5)
[2020-11-03 22:41] LABS: RBC Urine 1-5/HPF (0-5/HPF)
[2020-11-03 22:42] LABS: Bacteria Urine Many (>30); Squamous Epithelial Cell Urine 1-5 /HPF (0-5/HPF); WBC Urine 30-100/HPF (0-5/HPF)
[2020-11-03 23:02] VITALS: BP 172/76; PULSE 97; RESP 18; O2SAT 94
[2020-11-03 23:30] VITALS: BP 169/74; PULSE 103; O2SAT 93
[2020-11-03 23:59] LABS: COVID19 - ADMIT (NP swab/PCR) Negative (Negative)
[2020-11-04] VITALS (45 sets, daily range): BP systolic 91–162; BP diastolic 50–72; PULSE 61–109; RESP 16–31; TEMP 36.9–38.1; O2SAT 93–99
[2020-11-04] MEDS: HYDROMORPHONE 0.5 MG INJ IV ×2 (02:51→15:24)
[2020-11-04] MEDS: ACETAMINOPHEN 325 MG TABLET 975 MG PO (09:19)
[2020-11-04] MEDS: KETOROLAC 30 MG/ML VIAL 15 MG IV (09:21)
[2020-11-04] MEDS: cefTRIAXone 1,000 MG in SODIUM CHLORIDE 0.9% 100 ML 200 ML IV (09:22)
[2020-11-04 11:27] LABS: Acinetobacter baumannii Not Detected (Not Detect); Candida albicans Not Detected (Not Detect); Candida glabrata Not Detected (Not Detect); Candida krusei Not Detected (Not Detect); Candida parapsilosis Not Detected (Not Detect); Candida tropicalis Not Detected (Not Detect); E. coli Detected (Not Detect); Enterobacter cloacae complex Not Detected (Not Detect); Enterobacteriaceae species Detected (Not Detect); Enterococcus species Not Detected (Not Detect); Haemophilus influenzae Not Detected (Not Detect); KPC (carbapenem-resist gene) Not Detected (Not Detect); Listeria monocytogenes Not Detected (Not Detect); Neisseria meningitidis Not Detected (Not Detect); Proteus species Not Detected (Not Detect); Pseudomonas aeruginosa Not Detected (Not Detect); Serratia marcescens Not Detected (Not Detect); Staphylococcus species Not Detected (Not Detect); Streptococcus agalactiae (Gr B Not Detected (Not Detect); Streptococcus pneumonia Not Detected (Not Detect); Streptococcus pyogenes (Gr A) Not Detected (Not Detect); Streptococcus species Not Detected (Not Detect)
[2020-11-04] MEDS: SODIUM CHLORIDE 0.9% 1,837.05 ML 612.35 ML IV (12:00)
[2020-11-04] MEDS: SODIUM CHLORIDE 0.9% 1,000 ML 125 ML IV (12:23)
[2020-11-04 13:33] LABS: Lactate (Lactic Acid) 1.2 mmol/L (0.7-2.1)
--- NOTE | 2020-11-04 13:46 | PC.NURSE ---
NS Sepsis bolus of 30cc/kg infusion started at 1200, total volume of 1837.05 cc for pt weight of 61.235
[2020-11-04 14:52] LABS: Add Manual Diff / Slide Review NO; Basophils Absolute Auto 100 /uL (0-100); Basophils Percent Auto 0.3 % (0-2); Eosinophils Absolute Auto 100 /uL (0-450); Eosinophils Percent Auto 0.3 % (2-4); Hematocrit 27.9 % (36-46); Hemoglobin 9.3 g/dL (12.0-16.0); Lymphocytes Absolute Auto 2100 /uL (1100-4500); Lymphocytes Percent Auto 11.4 % (25-40); Mean Corpuscular HGB Conc 33.2 % (30-36); Mean Corpuscular Hemoglobin 29.4 PG (26-34); Mean Corpuscular Volume 88.6 fL (80-100); Monocytes Absolute Auto 1000 /uL (0-900); Monocytes Percent Auto 5.4 % (3-14); Neutrophils Absolute Auto 15100 /uL (1500-7000); Neutrophils Percent Auto 82.6 % (50-75); Platelet Count 262 X10^3/uL (150-400); Red Blood Cell Count 3.15 X10^6/uL (4.0-5.2); Red Cell Distribution Width 13.7 % (11.6-14.8); White Blood Cell Count 18.3 X10^3/uL (4.5-11.0)
[2020-11-04] MEDS: SODIUM CHLORIDE 0.9% 1,000 ML 150 ML IV (15:24)
--- NOTE | 2020-11-04 18:04 | PC.NURSE ---
report called to marcos peralta TY at [phone]
== END 2020-11-04 18:11 | disposition short-term general hospital (02) ==
PROVIDERS: Emergency Medicine; Emergency Provider Emergency Medicine; Family Provider Physician Assistant; PCP Physician Assistant
DX: N12 Tubulo-interstitial nephritis, not specified as acute or chronic (principal); D72.829 Elevated white blood cell count, unspecified; R50.9 Fever, unspecified; Z98.84 Bariatric surgery status; Z20.822 Contact with and (suspected) exposure to COVID-19
CPT/HCPCS: 36415; 74176; 74177; 80053; 81003; 81015; 83605; 83690; 84145; 85025; 87040; 87077; 87086; 87150; 87186; 87205; 87635; 96361; 96365; 96366; 96375; 96376; 99284; 99291; C9803; J0696; J1170; J1885; J2270; J2405; Q9967

== ENCOUNTER → 2023-12-16 10:22 | Outpatient (CLI) | payer BC, SELFPAY ==
--- NOTE | 2023-12-16 10:24 | DI.CT.S_ITS ---
PROCEDURE: CT SINUS SCREEN WO CON INDICATIONS: CHRONIC PANSINUSITIS,FACIAL PARESTHESIA TECHNIQUE: Noncontrast 3.0 mm axial images acquired from the frontal sinuses to the mid-sella, with coronal and sagittal reformats. For radiation dose reduction, the following was used: automated exposure control, adjustment of mA and/or kV according to patient size. COMPARISON: None. FINDINGS: Image quality: Excellent. Maxillary Sinuses: No bony remodeling or destruction. Mild mucosal thickening at the inferior right greater than left maxillary sinuses.. Ethmoid Air Cells: No bony remodeling or destruction. Sinuses are clear. Sphenoid Sinuses: No bony remodeling or destruction. Sinuses are clear. Frontal Sinuses: No bony remodeling or destruction. Sinuses are clear. Ostiomeatal Complexes: Ostiomeatal complexes are patent. No Aristeo cells. Miscellaneous: Visualized intra-orbital contents are normal. No ad bullosa or paradoxical turbinate curvature. Rightward nasal septal deviation with spurring. IMPRESSION: Mild mucosal thickening of the inferior maxillary sinuses, right greater than left. Otherwise, the paranasal sinuses are clear. Dictated by: Octaviano Menezes M.D. on 12/16/2023 at 15:37 Approved by: Octaviano Menezes M.D. on 12/16/2023 at 15:39
== END ==
LOC: CT 10:22
PROVIDERS: Family Provider Physician Assistant; PCP Nurse Practitioner Family; Referring Provider Otolaryngology; Visit Provider Otolaryngology
DX: R20.2 Paresthesia of skin (principal); J32.4 Chronic pansinusitis
CPT/HCPCS: 70486